=== PATIENT | female | born 1955 | race Caucasian/White ===

== ENCOUNTER → 2016-07-09 | Outpatient (CLI) | payer MEDICARE | LOC: KOH-I 09:56 | DX: M25.511 Pain in right shoulder (principal); M75.111 Incomplete rotator cuff tear or rupture of right shoulder, not specified as traumatic | CPT/HCPCS: 73221 ==

== ENCOUNTER → 2020-08-21 | Outpatient (CLI) | payer MEDICARE ==
[~2020-08-21] MED LIST: COLCHICINE0.6 M1 PO; CRESTOR40 MG PO; HYDROCHLOROTHIA25 MG PO; IBUPROFEN800 MG PO; LOPRESSOR 25 MG25 MG PO; MEDROL4 MG PO; NORCO 10-325 T1 EACH PO; PROVENTIL HFA6.7 GM INH; VITAMIN D21250 MCG PO; ZANAFLEX4 M1 PO; ZESTRIL 40 MG T40 MG PO
== END ==
LOC: EXRD 14:19
DX: Z13.820 Encounter for screening for osteoporosis (principal)
CPT/HCPCS: 77080

== ENCOUNTER 2020-09-04 09:09 | Emergency (ER) | payer MEDICARE ==
[~2020-09-04 09:09] MED LIST changes: -COLCHICINE0.6 M1 PO
[2020-09-04] MEDS ORDERED: COLCHICINE0.6 M1 PO (09:51)
== END 2020-09-04 10:30 | disposition home or self-care (01) ==
LOC: ER1 09:09
DX: M10.9 Gout, unspecified (principal); I10 Essential (primary) hypertension; Z88.8 Allergy status to other drugs, medicaments and biological substances
CPT/HCPCS: 96372; 99283; J1885